=== PATIENT | male | born 1990 | race Caucasian/White ===

== ENCOUNTER → 2020-09-11 | Outpatient (CLI) | payer OTHER ==
[2013-07-16 15:12] VITALS: BP 130/67
[~2020-09-11] MED LIST: METAMUCIL1 PDR PO; MIRALAX 17GM PK1 PKT PO; TYLENOL 325MG325 MG PO
== END ==
LOC: LAB 11:16
DX: J34.89 Other specified disorders of nose and nasal sinuses (principal); R19.7 Diarrhea, unspecified; R51.9 Headache, unspecified; Z20.828 Contact with and (suspected) exposure to other viral communicable diseases

== ENCOUNTER → 2023-01-17 | Outpatient (CLI) | payer OTHER | LOC: RAD 10:44 | DX: N50.811 Right testicular pain (principal) ==

== ENCOUNTER → 2024-02-12 | Outpatient (CLI) | payer OTHER ==
[2024-02-12 11:28] LABS: BASO # 0.02 K/mm3 (0.02-0.10); EOS # 0.08 K/mm3 (0.04-0.40); EOS % 1.6 % (0.0-4.0); HEMATOCRIT 51.1 % (42.0-52.0); HEMOGLOBIN 16.5 g/dL (13.5-18.0); LYMPH# 1.84 K/mm3 (1.50-4.00); MEAN CELL VOLUME 91 fl (78-100); MEAN CORPUSCULAR HEMOGLOBIN 30 pg (27-31); MEAN CORPUSCULAR HGB CONC 32 g/dL (33-37); MEAN PLATELET VOLUME 10.4 fl (7.4-10.4); MONO # 0.41 K/mm3 (0.20-0.80); PLATELET COUNT 118 K/mm3 (130-400); RED CELL DISTRIBUTION WIDTH 11.7 % (11.5-14.5); WHITE BLOOD COUNT 5.2 K/mm3 (4.8-10.8)
[2024-02-12 11:31] LABS: ALBUMIN 4.5 g/dL (3.5-5.0)
[2024-02-12 11:32] LABS: CALCIUM 9.6 mg/dL (8.3-10.5)
[2024-02-12 11:33] LABS: TOTAL PROTEIN 7.8 g/dL (6.4-8.3)
[2024-02-12 11:35] LABS: TOTAL BILIRUBIN 1.5 mg/dL (0.2-1.2)
== END ==
LOC: LAB 10:54
PROVIDERS: Physician Assistant
DX: Z13.220 Encounter for screening for lipoid disorders (principal); K90.9 Intestinal malabsorption, unspecified; R53.83 Other fatigue